=== PATIENT | male | born 1975 | race Caucasian/White ===

== ENCOUNTER 2016-12-22 06:14 | Emergency (ER) | payer OTHER ==
[~2016-12-22] VITALS: Ht 172.7 cm; Wt 75.9 kg
[~2016-12-22 06:14] MED LIST: IBUP-103 PO
[2016-12-22 06:17] VITALS: TEMP 36.4; Ht 172.7 cm; Wt 75.9 kg
[2016-12-22] MEDS ORDERED: ONDANSETRON INJ 2 MG/ML 2 ML VIAL ONE (06:31)
[2016-12-22] MEDS ORDERED: KETOROLAC TROMETHAMINE 30 MG/ML VIAL ONE (06:31)
[2016-12-22] MEDS ORDERED: HYDROmorphone INJ 1 MG/ML SYR IV STA ×2 (06:38→08:53)
[2016-12-22] MEDS ORDERED: SODIUM CHLORIDE 0.9% 1000ML 1,000 ML IV STA (06:44)
[2016-12-22 06:45] LABS: BASO % 0.8 %; BASO ABS # 0.05 K/uL (0-0.2); COMPLETE YES; EOS % 3.3 %; HEMATOCRIT 44.8 % (42-52); IG% 0.2 %; LYMPH % 36.5 %; MEAN CELL VOLUME 90.5 fL (80-100); MEAN CORPUSCULAR HEMOGLOBIN 31.5 pg (25-34); MEAN CORPUSCULAR HGB CONC 34.8 g/dl (32-36); MEAN PLATELET VOLUME 9.7 fL (7.4-10.4); MONO % 10.5 %; NEUT % 48.7 %; PLATELET COUNT 274 K/uL (130-400); RED BLOOD COUNT 4.95 M/uL (4.7-6.1); WHITE BLOOD COUNT 6.57 K/uL (4.8-10.8)
--- NOTE | 2016-12-22 06:51 | EMERGENCY ROOM VISIT NOTE ---
History Report prepared by Adam: Sharla Trejo Under the Supervision of: Dr. Dano Juarez M.D. 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 The patient has a history of kidney stones and has had CTs in the past for them. He states that his current pain is consistent with previous kidney stones. He is also experiencing nausea. The patient adds that he is also experiencing hematochezia and states that he does not typically experience hematochezia with kidney stones. 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 A total of 10 systems reviewed and were otherwise negative. Past Medical & Surgical Surgical Problems: (1) H/O hernia repair (2) Hx of tonsillectomy Family History Cancer Heart disease Kidney disease Kidney stones Social History Smoking Status: Never Smoker Alcohol Use: occasionally Marital Status: Housing Status: lives with family Occupation Status: employed Current/Historical Medications Scheduled Tamsulosin Hcl (Flomax), 0.4 MG PO HS Scheduled PRN Oxycodone/Acetaminophen 5MG/325MG (Percocet 5MG/325MG), 1-2 TAB PO Q4H PRN for Pain Allergies Coded Allergies: No Known Allergies (Unverified , 10/24/15) Physical Exam Vital Signs Date Time Temp Pulse Resp B/P (MAP) Pulse Ox O2 Delivery O2 Flow Rate FiO2 12/22/16 09:06 74 16 151/88 95 12/22/16 08:02 74 16 151/88 95 Room Air 12/22/16 06:41 72 12/22/16 06:17 36.4 74 16 184/115 97 Room Air Physical Exam GENERAL: Patient is a uncomfortably-appearing well-nourished male HEAD: Normocephalic atraumatic EYES: Ocular movements intact pupils equal and react to light OROPHARYNX mucous membranes are moist no exudates present no erythema or edema present NECK: Supple no nuchal rigidity CHEST: Good equal expansion LUNGS: Clear and equal to auscultation CARDIAC: Normal S1 and S2 ABDOMEN: Soft, no tenderness including no right lower quadrant tenderness, no guarding BACK: No CVA tenderness EXTREMITIES: No pain upon palpation normal muscle strength in all groups no clubbing cyanosis or edema NEURO: Patient is following commands and answering questions appropriately. Alert and oriented x3 Cranial Nerves 2-12 grossly intact Medical Decision & Procedures ER Provider Diagnostic Interpretation: Radiology results as stated below per my review and radiologist interpretation: KUB FINDINGS: There is an S1 spina bifida occulta. There is no pathologic bowel dilatation. No renal calculi are visualized. There is a nonspecific 2.5 mm right pelvic basin calcification. IMPRESSION: 1. No evidence of pathologic bowel dilatation 2. No renal calculi identified on conventional radiographic imaging 3. Nonspecific 2.5 mm right pelvic basin calcification Electronically signed by: Kevin Reid M.D. 12/22/2016 7:48 AM Dictated Date/Time: 12/22/2016 7:47 AM EXAMINATION: RENAL ULTRASOUND FINDINGS: The right kidney measures 10.8 cm. The left kidney measures 11.5 cm. There is mild right-sided hydronephrosis. There is mild dilatation the proximal right ureter. There is no left-sided hydronephrosis There are no renal masses. The bladder was nearly empty at the time of scanning. IMPRESSION : Mild right-sided hydronephrosis. In the setting of right flank pain, this may indicate an obstructing calculus. Electronically signed by: Kevin Reid M.D. 12/22/2016 7:39 AM Dictated Date/Time: 12/22/2016 7:37 AM Laboratory Results 12/22/16 06:25 Red Blood Count 4.95, Mean Corpuscular Volume 90.5, Mean Corpuscular Hemoglobin 31.5, Mean Corpuscular Hemoglobin Concent 34.8, Mean Platelet Volume 9.7, Neutrophils (%) (Auto) 48.7, Lymphocytes (%) (Auto) 36.5, Monocytes (%) (Auto) 10.5, Eosinophils (%) (Auto) 3.3, Basophils (%) (Auto) 0.8, Neutrophils # (Auto ) 3.20, Lymphocytes # (Auto) 2.40, Monocytes # (Auto) 0.69, Eosinophils # (Auto ) 0.22, Basophils # (Auto) 0.05 12/22/16 06:25 Test 12/22/16 00:00 12/22/16 06:25 Urine Color DK YELLOW Urine Appearance CLEAR (CLEAR) Urine pH 6.0 (4.5-7.5) Urine Specific [place] 1.026 (1.000-1.030) Urine Protein TRACE (NEG) Urine Glucose (UA) NEG (NEG) Urine Ketones TRACE (NEG) Urine Occult Blood 3+ (NEG) Urine Nitrite NEG (NEG) Urine Bilirubin NEG (NEG) Urine Urobilinogen NEG (NEG) Urine Leukocyte Esterase TRACE (NEG) Urine WBC (Auto) 1-5 /hpf (0-5) Urine RBC (Auto) >30 /hpf (0-4) Urine Hyaline Casts (Auto) 1-5 /lpf (0-5) Urine Epithelial Cells (Auto) 20-30 /lpf (0-5) Urine Bacteria (Auto) NEG (NEG) White Blood Count 6.57 K/uL (4.8-10.8) Red Blood Count 4.95 M/uL (4.7-6.1) Hemoglobin 15.6 g/dL (14.0-18.0) Hematocrit 44.8 % (42-52) Mean Corpuscular Volume 90.5 fL (80-100) Mean Corpuscular Hemoglobin 31.5 pg (25-34) Mean Corpuscular Hemoglobin Concent 34.8 g/dl (32-36) Platelet Count 274 K/uL (130-400) Mean Platelet Volume 9.7 fL (7.4-10.4) Neutrophils (%) (Auto) 48.7 % Lymphocytes (%) (Auto) 36.5 % Monocytes (%) (Auto) 10.5 % Eosinophils (%) (Auto) 3.3 % Basophils (%) (Auto) 0.8 % Neutrophils # (Auto) 3.20 K/uL (1.4-6.5) Lymphocytes # (Auto) 2.40 K/uL (1.2-3.4) Monocytes # (Auto) 0.69 K/uL (0.11-0.59) Eosinophils # (Auto) 0.22 K/uL (0-0.5) Basophils # (Auto) 0.05 K/uL (0-0.2) RDW Standard Deviation 41.1 fL (36.4-46.3) RDW Coefficient of Variation 12.4 % (11.5-14.5) Immature Granulocyte % (Auto) 0.2 % Immature Granulocyte # (Auto) 0.01 K/uL (0.00-0.02) Anion Gap 9.0 mmol/L (3-11) Est Creatinine Clear Calc Drug Dose 103.3 ml/min Estimated GFR () 120.9 Estimated GFR (Non- 104.3 BUN/Creatinine Ratio 13.9 (10-20) Calcium Level 8.6 mg/dl (8.5-10.1) Total Bilirubin 0.5 mg/dl (0.2-1) Direct Bilirubin 0.1 mg/dl (0-0.2) Aspartate Amino Transf (AST/SGOT) 31 U/L (15-37) Alanine Aminotransferase (ALT/SGPT) 42 U/L (12-78) Alkaline Phosphatase 125 U/L (45-117) Total Protein 7.2 gm/dl (6.4-8.2) Albumin 3.9 gm/dl (3.4-5.0) Lipase 171 U/L (73-393) Labs reviewed by ED physician. Medications Administered Medications (Trade) Dose Ordered Sig/Nolan Route Start Time Stop Time Status Last Admin Dose Admin Ketorolac Tromethamine (Toradol Inj) 30 mg STK-MED ONCE .ROUTE 12/22/16 06:31 12/22/16 06:32 DC 12/22/16 06:37 30 MG Ondansetron HCl (Zofran Inj) 4 mg STK-MED ONCE .ROUTE 12/22/16 06:31 12/22/16 06:32 DC 12/22/16 06:36 4 MG Hydromorphone HCl (Dilaudid Inj) 1 mg NOW STAT IV 12/22/16 06:38 12/22/16 06:39 DC 12/22/16 06:43 1 MG Sodium Chloride 1,000 ml @ 999 mls/hr Q1H1M STAT IV 12/22/16 06:44 12/22/16 07:44 DC 12/22/16 06:46 999 MLS/HR Hydromorphone HCl (Dilaudid Inj) 1 mg NOW STAT IV 12/22/16 08:53 12/22/16 08:54 DC 12/22/16 08:56 1 MG ED Course 0636: Past medical records reviewed. The patient was evaluated in room B3. A complete history and physical examination was performed. 0638: Ordered Dilaudid Inj 1 mg IV 0644: Ordered Sodium Chloride 1000 ml @ 999 mls/hr IV 0810: Upon reexamination the patient is doing well. I offered to do a rectal exam on the patient due to the blood in his stool, but he refused. I discussed results and treatment plan with the patient. He verbalizes agreement and understanding. The patient is ready for discharge. Medical Decision Differential diagnosis: Etiologies such as renal colic, appendicitis, diverticulitis, mesenteric ischemia, aortic pathology, infections, inflammatory bowel disease, PUD, biliary pathology, UTI, as well as others were entertained. This is a 41-year-old male who presents emergency department complaining of right-sided flank pain. The patient does have a history of CAT scans and reports that he has had CAT scan showing kidney stones in the past without other acute process. The patient does appear to be in distress and does have blood in his urine. For this reason IV was established, patient given normal saline bolus, Toradol, Dilaudid. Repeat examination revealed improvement patient's symptoms. There is no obvious calculus on KUB however there is hydronephrosis on ultrasound. I do believe that the patient's pain can be managed at home. He is afebrile here and does not have an elevation in his white blood count cell count. The patient was placed on Percocet as well as Flomax. He will follow-up with urology. Patient was in agreement with the treatment plan. Impression Primary Impression: Right flank pain Scribe Attestation The scribe's documentation has been prepared under my direction and personally reviewed by me in its entirety. I confirm that the note above accurately reflects all work, treatment, procedures, and medical decision making performed by me. Departure Information Dispostion Home / Self-Care Prescriptions Tamsulosin Hcl (FLOMAX) 0.4 Mg Cap 0.4 MG PO HS for 10 Days, #10 CAP Prov: Dano Juarez MD 12/22/16 Oxycodone/Acetaminophen 5MG/325MG (PERCOCET 5MG/325MG) Tab 1-2 TAB PO Q4H Y for Pain, #14 TAB Prov: Dano Juarez MD 12/22/16 Referrals No Doctor, Assigned (PCP) Forms HOME CARE DOCUMENTATION FORM, IMPORTANT VISIT INFORMATION Patient Instructions GI Bleeding - [facility], Hypertension Dc, Kidney Stones Expectant Therapy, Kidney Stones Prevent, Kidney Stones Risk, My [facility] [employer] Additional Instructions You were found to have an elevated blood pressure today (>120 sytolic or >90 diastolic). Per medicare guidelines, you need to follow up with this blood pressure screening with your Primary Care Physician (PCP). For a new PCP call [phone]. You received narcotic or benzodiazepene medication while in the emergency room today. Do not drive, operate heavy machinery, or drink alcohol under the influence of this medication. Take 600 mg Ibuprofen every 6 hours Take Percocet for breakthrough pain You have been examined and treated today on an emergency basis only. This is not a substitute for, or an effort to provide, complete comprehensive medical care. It is impossible to recognize and treat all injuries or illnesses in a single emergency department visit. It is therefore important that you follow up closely with your PCP. Call as soon as possible for an appointment. Thank you for your time and consideration. I look forward to speaking with you again soon. Please don't hesitate to call us if you have any questions.
[2016-12-22 07:05] LABS: BUN/CREATININE RATIO 13.9 (10-20); CALCIUM 8.6 mg/dl (8.5-10.1); CREATININE 0.91 mg/dl (0.60-1.40); POTASSIUM 3.5 mmol/L (3.5-5.1)
--- NOTE | 2016-12-22 07:40 | DIAGNOSTIC IMAGING REPORT ---
EXAMINATION: RENAL ULTRASOUND CLINICAL HISTORY: Right flank pain COMPARISON STUDY: FINDINGS: The right kidney measures 10.8 cm. The left kidney measures 11.5 cm. There is mild right-sided hydronephrosis. There is mild dilatation the proximal right ureter. There is no left-sided hydronephrosis There are no renal masses. The bladder was nearly empty at the time of scanning. IMPRESSION : Mild right-sided hydronephrosis. In the setting of right flank pain, this may indicate an obstructing calculus. Electronically signed by: Kevin Reid M.D. 12/22/2016 7:39 AM Dictated Date/Time: 12/22/2016 7:37 AM
--- NOTE | 2016-12-22 07:50 | DIAGNOSTIC IMAGING REPORT ---
KUB CLINICAL HISTORY: Right flank pain COMPARISON STUDY: No previous studies for comparison. FINDINGS: There is an S1 spina bifida occulta. There is no pathologic bowel dilatation. No renal calculi are visualized. There is a nonspecific 2.5 mm right pelvic basin calcification. IMPRESSION: 1. No evidence of pathologic bowel dilatation 2. No renal calculi identified on conventional radiographic imaging 3. Nonspecific 2.5 mm right pelvic basin calcification Electronically signed by: Kevin Reid M.D. 12/22/2016 7:48 AM Dictated Date/Time: 12/22/2016 7:47 AM
[2016-12-22 08:05] LABS: URINE APPEARANCE CLEAR (CLEAR); URINE COLOR DK YELLOW; URINE EPITHELIAL CELL AUTO 20-30 /lpf (0-5); URINE NITRITE NEG (NEG); URINE SPECIFIC GRAVITY 1.026 (1.000-1.030); UROBILINOGEN NEG (NEG)
[2016-12-22 08:07] LABS: MANUAL MICROSCOPIC REQUIRED? NO; REVIEW REQ? NO; URINE BILIRUBIN NEG (NEG)
[2016-12-22] MEDS ORDERED: TAMS0.4C38 PO (08:12)
[2016-12-22] MEDS ORDERED: OXYC-57 PO (08:12)
[2016-12-22 09:06] VITALS: BP 151/88; PULSE 74; O2SAT 95
== END 2016-12-22 09:08 | disposition home or self-care (01) ==
LOC: C.EDB 06:14
DX: R10.30 Lower abdominal pain, unspecified (principal); Z87.442 Personal history of urinary calculi; Z98.890 Other specified postprocedural states; Z80.9 Family history of malignant neoplasm, unspecified; Z82.49 Family history of ischemic heart disease and other diseases of the circulatory system; Z84.1 Family history of disorders of kidney and ureter

== ENCOUNTER 2018-03-05 15:37 | Emergency (ER) | payer OTHER ==
[~2018-03-05] VITALS: Ht 172.7 cm; Wt 77.5 kg
[2018-03-05 15:41] VITALS: TEMP 37.2; Ht 172.7 cm; Wt 77.5 kg
--- NOTE | 2018-03-05 16:36 | DIAGNOSTIC IMAGING REPORT ---
CHEST ONE VIEW PORTABLE CLINICAL HISTORY: Hypertension. COMPARISON STUDY: No previous studies for comparison. FINDINGS: Lung volumes are normal. There is no pneumothorax or pleural effusion. There is no consolidation or evidence for pulmonary edema. Cardiac size is normal. Mediastinal contours are normal. IMPRESSION: No acute cardiopulmonary findings. Electronically signed by: Seb Tate M.D. 03/05/2018 4:34 PM Dictated Date/Time: 03/05/2018 4:33 PM
[2018-03-05 17:19] LABS: BASO % 0.2 %; BASO ABS # 0.02 K/uL (0-0.2); EOS % 0.6 %; EOS ABS # 0.05 K/uL (0-0.5); HEMATOCRIT 44.4 % (42-52); HEMOGLOBIN 16.2 g/dL (14.0-18.0); IG# 0.02 K/uL (0.00-0.02); LYMPH % 21.1 %; LYMPH ABS # 1.81 K/uL (1.2-3.4); MEAN CELL VOLUME 89.2 fL (80-100); MEAN CORPUSCULAR HEMOGLOBIN 32.5 pg (25-34); MEAN CORPUSCULAR HGB CONC 36.5 g/dl (32-36); MEAN PLATELET VOLUME 9.9 fL (7.4-10.4); MONO % 6.7 %; MONO ABS # 0.57 K/uL (0.11-0.59); NEUT % 71.2 %; NEUT ABS # 6.09 K/uL (1.4-6.5); PLATELET COUNT 246 K/uL (130-400); RED CELL DISTRIBUTION WIDTH CV 12.5 % (11.5-14.5); RED CELL DISTRIBUTION WIDTH SD 40.2 fL (36.4-46.3); WHITE BLOOD COUNT 8.56 K/uL (4.8-10.8)
[2018-03-05 17:37] LABS: CALCIUM 8.9 mg/dl (8.5-10.1); CREATININE 0.95 mg/dl (0.60-1.40); POTASSIUM 3.5 mmol/L (3.5-5.1)
[2018-03-05] MEDS ORDERED: LISI10TA PO (18:26)
[2018-03-05 18:30] VITALS: BP 167/116
[2018-03-05] MEDS ORDERED: LISINOPRIL 5 MG TAB PO ONE (18:30)
[2018-03-05 18:45] VITALS: PULSE 81; O2SAT 95
--- NOTE | 2018-03-05 20:27 | EMERGENCY ROOM VISIT NOTE ---
History Report prepared by Adam: Georgia Marrero Under the Supervision of: Dr. Te Coughlin D.O. First contact with patient: 15:45 Chief Complaint: HYPERTENSION Stated Complaint: HIGH BLOOD PRESSURE 194/122 History of Present Illness The patient is a 42 year old male who presents to the Emergency Room with complaints of an episode of hypertension that onset today. The patient states that at work he is doing a healthy eating challenge and took his blood pressure. He notes that the first time he took it, he was 194/122 and the second time was 190/150. He states that he does not have a history of hypertension, but he does have a family history of hypertension. He notes that the last time he saw a doctor was for kidney stones, and his blood pressure was high at that time, but they assumed it was due to the pain. He denies any nausea , vomiting, chest pain, shortness of breath, or diarrhea. Patient denies all other complaints. No weakness or numbness in her arms legs. Source of History: patient Onset: today Position: other (hypertension) Quality: other (hypertension) Timing: other (episode) Associated Symptoms: No chest pain, No SOB, No nausea, No vomiting, No diarrhea Review of Systems See HPI for pertinent positives & negatives. A total of 10 systems reviewed and were otherwise negative. Past Medical & Surgical Surgical Problems: (1) H/O hernia repair (2) Hx of tonsillectomy Family History Cancer Heart disease Kidney disease Kidney stones Social History Smoking Status: Former Smoker Alcohol Use: occasionally Marital Status: Housing Status: lives with family Occupation Status: employed Current/Historical Medications Scheduled Lisinopril (Prinivil), 5 MG PO DAILY Allergies Coded Allergies: No Known Allergies (Unverified , 03/05/18) Physical Exam Vital Signs Date Time Temp Pulse Resp B/P (MAP) Pulse Ox O2 Delivery O2 Flow Rate FiO2 03/05/18 18:45 81 16 95 03/05/18 18:30 167/116 03/05/18 18:15 86 17 95 03/05/18 18:00 168/112 03/05/18 17:45 78 17 96 03/05/18 17:31 181/110 03/05/18 17:28 78 03/05/18 17:15 81 16 96 03/05/18 17:10 79 20 177/121 98 Room Air 03/05/18 16:37 77 20 162/112 96 Room Air 03/05/18 15:41 37.2 97 20 193/126 97 Room Air Physical Exam GENERAL: Sitting up in bed, alert, well appearing, well nourished, no distress, non-toxic EYE EXAM: normal conjunctiva. PERRL and EOM's grossly intact. OROPHARYNX: no exudate, no erythema, lips, buccal mucosa, and tongue normal and mucous membranes are moist NECK: supple, no nuchal rigidity, no adenopathy, non-tender LUNGS: Clear to auscultation. Normal chest wall mechanics HEART: no murmurs, S1 normal and S2 normal ABDOMEN: abdomen soft, non-tender, normo-active bowel sounds, no masses, no rebound or guarding. BACK: Back is symmetrical on inspection and there is no deformity, no midline tenderness, no CVA tenderness. SKIN: no rashes and no bruising UPPER EXTREMITIES: upper extremities are grossly normal. LOWER EXTREMITIES: No pitting edema. NEURO EXAM: Normal sensorium, cranial nerves II-XII intact, normal speech, no weakness of arms, no weakness of legs. No drift. Finger to nose intact. Gross sensation intact. Medical Decision & Procedures ER Provider Diagnostic Interpretation: Radiology results as stated below per my review and the radiologist's interpretation: CHEST ONE VIEW PORTABLE CLINICAL HISTORY: Hypertension. COMPARISON STUDY: No previous studies for comparison. FINDINGS: Lung volumes are normal. There is no pneumothorax or pleural effusion. There is no consolidation or evidence for pulmonary edema. Cardiac size is normal. Mediastinal contours are normal. IMPRESSION: No acute cardiopulmonary findings. Electronically signed by: Seb Tate M.D. 03/05/2018 4:34 PM Dictated Date/Time: 03/05/2018 4:33 PM Laboratory Results 03/05/18 16:30 Red Blood Count 4.98, Mean Corpuscular Volume 89.2, Mean Corpuscular Hemoglobin 32.5, Mean Corpuscular Hemoglobin Concent 36.5, Mean Platelet Volume 9.9, Neutrophils (%) (Auto) 71.2, Lymphocytes (%) (Auto) 21.1, Monocytes (%) (Auto) 6.7, Eosinophils (%) (Auto) 0.6, Basophils (%) (Auto) 0.2, Neutrophils # (Auto) 6.09, Lymphocytes # (Auto) 1.81, Monocytes # (Auto) 0.57, Eosinophils # (Auto) 0.05, Basophils # (Auto) 0.02 03/05/18 16:30 Test 03/05/18 16:30 03/05/18 17:05 White Blood Count 8.56 K/uL (4.8-10.8) Red Blood Count 4.98 M/uL (4.7-6.1) Hemoglobin 16.2 g/dL (14.0-18.0) Hematocrit 44.4 % (42-52) Mean Corpuscular Volume 89.2 fL (80-100) Mean Corpuscular Hemoglobin 32.5 pg (25-34) Mean Corpuscular Hemoglobin Concent 36.5 g/dl (32-36) Platelet Count 246 K/uL (130-400) Mean Platelet Volume 9.9 fL (7.4-10.4) Neutrophils (%) (Auto) 71.2 % Lymphocytes (%) (Auto) 21.1 % Monocytes (%) (Auto) 6.7 % Eosinophils (%) (Auto) 0.6 % Basophils (%) (Auto) 0.2 % Neutrophils # (Auto) 6.09 K/uL (1.4-6.5) Lymphocytes # (Auto) 1.81 K/uL (1.2-3.4) Monocytes # (Auto) 0.57 K/uL (0.11-0.59) Eosinophils # (Auto) 0.05 K/uL (0-0.5) Basophils # (Auto) 0.02 K/uL (0-0.2) RDW Standard Deviation 40.2 fL (36.4-46.3) RDW Coefficient of Variation 12.5 % (11.5-14.5) Immature Granulocyte % (Auto) 0.2 % Immature Granulocyte # (Auto) 0.02 K/uL (0.00-0.02) Anion Gap 12.0 mmol/L (3-11) Est Creatinine Clear Calc Drug Dose 98.0 ml/min Estimated GFR () 114.0 Estimated GFR (Non- 98.3 BUN/Creatinine Ratio 16.2 (10-20) Calcium Level 8.9 mg/dl (8.5-10.1) Urine Color YELLOW Urine Appearance CLEAR (CLEAR) Urine pH 5.5 (4.5-7.5) Urine Specific [place] 1.016 (1.000-1.030) Urine Protein NEG (NEG) Urine Glucose (UA) NEG (NEG) Urine Ketones NEG (NEG) Urine Occult Blood NEG (NEG) Urine Nitrite NEG (NEG) Urine Bilirubin NEG (NEG) Urine Urobilinogen NEG (NEG) Urine Leukocyte Esterase NEG (NEG) Urine WBC (Auto) 0 /hpf (0-5) Urine RBC (Auto) 0-4 /hpf (0-4) Urine Hyaline Casts (Auto) 0 /lpf (0-5) Urine Epithelial Cells (Auto) 0-5 /lpf (0-5) Urine Bacteria (Auto) NEG (NEG) Laboratory results per my review. Medications Administered Medications (Trade) Dose Ordered Sig/Nolan Route Start Time Stop Time Status Last Admin Dose Admin Lisinopril (Zestril Tab) 5 mg NOW ONCE PO 03/05/18 18:30 03/05/18 18:31 DC 03/05/18 18:54 5 MG ECG Per My Interpretation Indication: other (hypertension) Rate (beats per minute): 77 Rhythm: sinus rhythm Findings: other (normal axis, no PVC) ED Course ED COURSE: Vital signs were reviewed and showed hypertension. The patients medical record was reviewed The above diagnostic studies were performed and reviewed. While in the ED, the patient received Lisinopril 5 mg PO. ED treatments and interventions as stated above. 1553: The patient was evaluated in room C2. A complete history and physical examination was performed. 1822: Upon reevaluation, the patient is resting comfortably. I discussed my findings with the patient and he understands and agrees with the treatment plan. Based on the patients age, coexisting illnesses, exam and lab findings the decision to treat as an outpatient was made. The patient remained stable while under my care. The patient appeared well at the time of discharge. Medical Decision Differential diagnoses includes but is not limited to acute coronary syndrome, myocardial infarction, pericarditis, pulmonary embolus, aortic dissection, pneumonia, pneumothorax, musculoskeletal, shingles, esophageal. Patient is a 42-year-old male presents the ER for hypertension. He notes he is doing a health fitness at work and check his blood pressure was elevated. He has no other complaints. No chest pain shortness breath, change in vision headache or weakness or numbness. CBC along with BMP was unremarkable. UA was negative. No protein in urine. EKG unremarkable along with chest x-ray. Patient's blood pressures trended down to 170s-160s over 112-120s. Long conversation with the patient and we elected to start him on lisinopril 5 mg daily. He will follow-up with PCP as an outpatient. Discussed with Pt concerning signs and symptoms to watch out for. Pt was instructed to follow up with their PCP and discussed with the patient their option to return to the ED at anytime for persistent or worsening symptoms. The appropriate anticipatory guidance and out-patient management, including indications for return to the emergency department, were explained at length to the patient and understood. Medication Reconcilliation Current Medication List: was personally reviewed by me Blood Pressure Screening Patient's blood pressure: Elevated blood pressure Blood pressure disposition: Referred to PCP Impression Primary Impression: HTN (hypertension) Scribe Attestation The scribe's documentation has been prepared under my direction and personally reviewed by me in its entirety. I confirm that the note above accurately reflects all work, treatment, procedures, and medical decision making performed by me. Departure Information Dispostion Home / Self-Care Prescriptions Lisinopril (Prinivil) 10 Mg Tab 5 MG PO DAILY for 14 Days, #7 TAB Prov: Te Coughlin, DO 03/05/18 Referrals No Doctor, Assigned (PCP) Forms HOME CARE DOCUMENTATION FORM, IMPORTANT VISIT INFORMATION, WORK / SCHOOL INSTRUCTIONS Patient Instructions My [facility] Additional Instructions Please follow up with your primary care doctor with in the next 24 hours. Any worsening of your symptoms, please return to the ED immediately. This includes any fevers greater than 100.4, worsening pain, chest pain, shortness breath, persistent nausea, vomiting, unable to eat or drink, weakness or numbness in your arms or legs or any other concerning signs or symptoms from your standpoint. You were found to have a blood pressure greater than 120 systolic over 90 diastolic. Problem Qualifiers Primary Impression: HTN (hypertension) Hypertension type: unspecified Qualified Codes: I10 - Essential (primary) hypertension
== END 2018-03-05 19:07 | disposition home or self-care (01) ==
LOC: C.EDB 15:37 → C.EDC 19:07
DX: I10 Essential (primary) hypertension (principal); Z87.891 Personal history of nicotine dependence; Z82.49 Family history of ischemic heart disease and other diseases of the circulatory system